=== PATIENT | female | born 1935 | race Caucasian/White ===

== ENCOUNTER 2016-04-22 10:58 | Emergency (ER) | payer MEDICARE, MEDICAID ==
[2016-04-22] MEDS ORDERED: Sodium Chloride 0.9% 2.5 ML Syringe FLUSH PRN (11:11)
[2016-04-22] MEDS ORDERED: Sodium Chloride 0.9% 10 ML Syringe FLUSH PRN (11:11)
[2016-04-22] MEDS ORDERED: Sodium Chloride 0.9% 1,000 ML IV SCH (11:15)
--- NOTE | 2016-04-22 12:07 | EDM.PDOC ---
ED HISTORY OF PRESENT ILLNESS - General Chief Complaint: Respiratory Problem Stated Complaint: UNK Time Seen by Provider: 04/22/16 11:03 Source of Information: Reports: Patient History Limitations: Reports: No limitations - History of Present Illness INITIAL COMMENTS - FREE TEXT/NARRATIVE: History of present illness: [] Patient is a very poor historian that arrives with abdominal pain but she also states that she's had the same sharp stabbing pain since she was 8 years old. Patient reported to the nurse that she has had shortness of breath or cough. Review of systems: As per history of present illness and below otherwise all systems reviewed and negative. Past medical history: As per history of present illness and as reviewed below otherwise noncontributory. Surgical history: As per history of present illness and as reviewed below otherwise noncontributory. Social history: No reported history of drug or alcohol abuse. Family history: As per history of present illness and as reviewed below otherwise noncontributory. Physical exam: General: Well developed, well nourished in NAD HEENT: Atraumatic, normocephalic, pupils reactive, negative for conjunctival pallor or scleral icterus, mucous membranes moist, throat clear, neck supple, nontender, trachea midline. Lungs: Clear to auscultation, breath sounds equal bilaterally, chest nontender. Heart: S1S2, regular, negative for clicks, rubs, or JVD. Abdomen: Soft, nondistended, nontender. Negative for masses or hepatosplenomegaly. Negative for costovertebral tenderness. Pelvis: Stable nontender. Genitourinary: Deferred. Rectal: Deferred. Extremities: Atraumatic, negative for cords or calf pain. Neurovascular unremarkable. Neuro: Awake, alert, oriented. Cranial nerves II through XII unremarkable. Cerebellum unremarkable. Motor and sensory unremarkable throughout. Exam nonfocal. Diagnostics: [] Labs x-ray UA showing a UTI Therapeutics: [] IV hydrated Impression: [] UTI Plan: [] Bactrim twice a day for 7 days followup PMD Definitive disposition and diagnosis as appropriate pending reevaluation and review of above. - Related Data Allergies/ADRs: Allergies Allergy/AdvReac Type Severity Reaction Status Date / Time No Known Allergies Allergy Verified 04/22/16 11:05 Home Meds: Home Meds Blood Pressure Medication 04/22/16 [History] Sulfamethoxazole/Trimethoprim [Bactrim Ds Tablet] 1 each PO BID #14 tablet 04/22 [Rx] Past Medical History Cardiovascular History: Reports: Hypertension Social & Family History - Family History Family Medical History: Noncontributory - Tobacco Use Smoking Status *Q: Current Every Day Smoker Years of Tobacco use: 50 Packs/Tins Daily: 0.5 - Recreational Drug Use Recreational Drug Use: No ED ROS GENERAL - Review of Systems Review Of Systems: See Below (History of present illness) ED EXAM, GENERAL - Physical Exam Exam: See Below (See history of present illness) Course - Vital Signs Last Recorded V/S: Last Vital Signs Temp 36.2 C 04/22/16 11:07 Pulse 75 04/22/16 11:07 Resp 18 04/22/16 11:07 BP 131/43 L 04/22/16 11:07 Pulse Ox 96 04/22/16 11:07 - Orders/Labs/Meds Orders: Active Orders 24 hr Category Date Time Status Chest 1V Frontal [CR] Stat Exams 04/22/16 11:16 Taken Sodium Chloride 0.9% [Normal Saline] 1,000 ml Med 04/22/16 11:15 Active IV .BOLUS Sodium Chloride 0.9% [Saline Flush] Med 04/22/16 11:11 Active 10 ml FLUSH ASDIRECTED PRN Sodium Chloride 0.9% [Saline Flush] Med 04/22/16 11:11 Active 2.5 ml FLUSH ASDIRECTED PRN Peripheral IV Insertion Adult [OM.PC] Stat Oth 04/22/16 11:10 Ordered Medication Orders Sodium Chloride (Normal Saline) 1,000 mls @ 999 mls/hr IV .BOLUS GOMEZ Last Admin: 04/22/16 11:28 Dose: 999 mls/hr Sodium Chloride (Saline Flush) 10 ml FLUSH ASDIRECTED PRN PRN Reason: Keep Vein Open Last Admin: 04/22/16 11:29 Dose: 10 ml Sodium Chloride (Saline Flush) 2.5 ml FLUSH ASDIRECTED PRN PRN Reason: Keep Vein Open Last Admin: 04/22/16 11:29 Dose: 2.5 ml Labs: Laboratory Tests 04/22/16 04/22/16 04/22/16 Range/Units 11:30 11:30 12:40 WBC 4.77 (4.0-11.0) K/uL RBC 4.98 (4.30-5.90) M/uL Hgb 14.0 (12.0-16.0) g/dL Hct 43.4 (36.0-46.0) % MCV 87.1 (80.0-98.0) fL MCH 28.1 (27.0-32.0) pg MCHC 32.3 (31.0-37.0) g/dL RDW Std Deviation 44.8 (28.0-62.0) fl RDW Coeff of Robel 14 (11.0-15.0) % Plt Count 126 L (150-400) K/uL MPV 10.90 (7.40-12.00) fL Neut % (Auto) 57.6 (48.0-80.0) % Lymph % (Auto) 30.0 (16.0-40.0) % [place] % (Auto) 12.2 (0.0-15.0) % Eos % (Auto) 0.0 (0.0-7.0) % Baso % (Auto) 0.2 (0.0-1.5) % Neut # 2.8 (1.4-5.7) K/uL Lymph # 1.4 (0.6-2.4) K/uL [place] # 0.6 (0.0-0.8) K/uL Eos # 0.0 (0.0-0.7) K/uL Baso # 0.0 (0.0-0.1) K/uL Nucleated RBC % 0.0 /100WBC Nucleated RBCs # 0 K/uL Sodium 140 (136-146) mmol/L Potassium 4.5 (3.5-5.1) mmol/L Chloride 101 (98-110) mmol/L Carbon Dioxide 21 (21-31) mmol/L BUN 73 H (6.0-23.0) mg/dL Creatinine 2.9 H (0.6-1.5) mg/dL Est Cr Clr Drug Dosing 11.40 mL/min Estimated GFR (MDRD) 15.7 ml/min Glucose 75 (60-110) mg/dL Calcium 9.2 (8.8-10.8) mg/dL Total Bilirubin 0.5 (0.1-1.5) mg/dL AST 76 H (5-40) IU/L ALT 13 (8-54) IU/L Alkaline Phosphatase 87 (40-150) Total Protein 7.4 (6.0-8.0) g/dL Albumin 3.7 (3.4-4.8) g/dL Globulin 3.7 H (2.0-3.5) g/dL Albumin/Globulin Ratio 1.0 L (1.3-2.8) Lipase 52 (7-80) U/L Urine Color YELLOW Urine Appearance HAZY Urine pH 5.5 (5.0-8.0) Ur Specific [place] 1.025 (1.001-1.035) Urine Protein 30 (NEGATIVE) mg/dL Urine Glucose (UA) NEGATIVE (NEGATIVE) mg/dL Urine Ketones TRACE H (NEGATIVE) mg/dL Urine Occult Blood SMALL H (NEGATIVE) Urine Nitrite NEGATIVE (NEGATIVE) Urine Bilirubin SMALL H (NEGATIVE) Urine Ictotest NEGATIVE Urine Urobilinogen 0.2 (<2.0) EU/dL Ur Leukocyte Esterase MODERATE (NEGATIVE) Urine RBC 0-2 (0-2/HPF) Urine WBC 13-15 (0-5/HPF) Ur Epithelial Cells FEW (NONE-FEW) Urine Bacteria FEW (NEGATIVE) Urinalysis Comment Meds: Medications Generic Name Dose Route Start Last Admin Trade Name Freq PRN Reason Stop Dose Admin Sodium Chloride 1,000 mls @ 999 mls/hr 04/22/16 11:15 04/22/16 11:28 Normal Saline IV 999 mls/hr .BOLUS GOMEZ Administration Sodium Chloride 10 ml 04/22/16 11:11 04/22/16 11:29 Saline Flush FLUSH 10 ml ASDIRECTED PRN Administration Keep Vein Open Sodium Chloride 2.5 ml 04/22/16 11:11 04/22/16 11:29 Saline Flush FLUSH 2.5 ml ASDIRECTED PRN Administration Keep Vein Open Departure - Departure Time of Disposition: 13:34 Disposition: Home, Self-Care 01 Condition: good Clinical Impression: UTI (urinary tract infection) Qualifiers: Urinary tract infection type: site unspecified Hematuria presence: without hematuria Qualified Code(s): N39.0 - Urinary tract infection, site not specified Forms: ED Department Discharge Additional Instructions: The following information is given to patients seen in the emergency department who are being discharged to home. This information is to outline your options for follow-up care. We provide all patients seen in our emergency department with a follow-up referral. The need for follow-up, as well as the timing and circumstances, are variable depending upon the specifics of your emergency department visit. If you don't have a primary care physician on staff, we will provide you with a referral. We always advise you to contact your personal physician following an emergency department visit to inform them of the circumstance of the visit and for follow-up with them and/or the need for any referrals to a consulting specialist. The emergency department will also refer you to a specialist when appropriate. This referral assures that you have the opportunity for follow-up care with a specialist. All of these measure are taken in an effort to provide you with optimal care, which includes your follow-up. Under all circumstances we always encourage you to contact your private physician who remains a resource for coordinating your care. When calling for follow-up care, please make the office aware that this follow-up is from your recent emergency room visit. If for any reason you are refused follow-up, please contact the [facility] Emergency Department at and asked to speak to the emergency department charge nurse. Bactrim twice a day for one week [facility] [address] [place] [phone] - My Orders Last 24 Hours: My Active Orders 04/22/16 11:10 Peripheral IV Insertion Adult [OM.PC] Stat 04/22/16 11:11 Sodium Chloride 0.9% [Saline Flush] 10 ml FLUSH ASDIRECTED PRN Sodium Chloride 0.9% [Saline Flush] 2.5 ml FLUSH ASDIRECTED PRN 04/22/16 11:15 Sodium Chloride 0.9% [Normal Saline] 1,000 ml IV .BOLUS 04/22/16 11:16 Chest 1V Frontal [CR] Stat - Assessment/Plan Last 24 Hours: My Active Orders 04/22/16 11:10 Peripheral IV Insertion Adult [OM.PC] Stat 04/22/16 11:11 Sodium Chloride 0.9% [Saline Flush] 10 ml FLUSH ASDIRECTED PRN Sodium Chloride 0.9% [Saline Flush] 2.5 ml FLUSH ASDIRECTED PRN 04/22/16 11:15 Sodium Chloride 0.9% [Normal Saline] 1,000 ml IV .BOLUS 04/22/16 11:16 Chest 1V Frontal [CR] Stat
[2016-04-22 13:52] VITALS: BP 140/52
--- NOTE | 2016-04-22 16:46 | CR ---
EXAM DATE: 04/22/16 PATIENT'S AGE: 80 Patient: MODESTO GREENWOOD Facility: [place], [place] Site . Site : [id number] Study: XRay Chest Portable [id number]/9/2017 11:43:30 AM Ordering Physician: Dirk Molina Final Report: HISTORY: Pain, shortness of breath. Technique: One view portable chest. Comparison: None. Findings: No airspace consolidation. 7 mm nodular opacity projecting over the posterior aspect of the right 5th rib. No pleural effusion or pneumothorax. Tortuous, atherosclerotic aorta. Cardiac silhouette is within normal limits for size. Impression: 1. 7 mm nodular opacity in the upper right lung. Recommend comparison with prior radiographs, if available, or further evaluation with chest CT. 2. No other acute pulmonary findings. Dictated by Jc Jameson MD @ Apr 22 2016 11:58AM (Electronic Signature) Report Signed by Proxy and Original Signed Document filed in the Medical Record. MTDD
== END 2016-04-22 13:49 | disposition home or self-care (01) ==
LOC: MW.ED 10:58
DX: N39.0 Urinary tract infection, site not specified (principal); I10 Essential (primary) hypertension; F17.210 Nicotine dependence, cigarettes, uncomplicated
CPT/HCPCS: 71010; 80053; 81001; 83690; 85025; 96360; 99285; J7040; 99283

== ENCOUNTER 2018-09-15 11:32 | Emergency (ER) | payer MEDICARE, MEDICAID ==
[2018-09-15] MEDS ORDERED: Sodium Chloride 0.9% 2.5 ML Syringe FLUSH PRN (11:46)
[2018-09-15] MEDS ORDERED: Sodium Chloride 0.9% 10 ML Syringe FLUSH PRN (11:46)
--- NOTE | 2018-09-15 12:10 | EDM.PDOC ---
ED HPI GENERAL MEDICAL PROBLEM - General Chief Complaint: Gastrointestinal Problem Stated Complaint: NO BM Time Seen by Provider: 09/15/18 11:45 Source of Information: Reports: Patient, Family History Limitations: Reports: No Limitations - History of Present Illness INITIAL COMMENTS - FREE TEXT/NARRATIVE: HISTORY AND PHYSICAL: History of present illness: Patient is an 83-year-old female who presents to the emergency room with her sister with complaints of constipation. She states she is unsure the last time she's had a bowel movement but does have generalized abdominal discomfort and bloating. The sister has given her [id number] Ex-Lax and prune juice this morning. Patient denies any fever, chills, headache, change in vision, syncope or near syncope. Denies any chest pain, back pain, shortness of breath or cough. Denies any nausea, vomiting or dysuria. Has not noted any blood in urine or stool. Patient has been eating and drinking appropriately. Review of systems: As per history of present illness and below otherwise all systems reviewed and negative. Past medical history: As per history of present illness and as reviewed below otherwise noncontributory. Surgical history: As per history of present illness and as reviewed below otherwise noncontributory. Social history: See social history for further information Family history: As per history of present illness and as reviewed below otherwise noncontributory. Physical exam: General: Well-developed and well-nourished 83-year-old female. Alert and oriented. Nontoxic appearing and in no acute distress. HEENT: Atraumatic, normocephalic, pupils equal and reactive bilaterally, negative for conjunctival pallor or scleral icterus, mucous membranes moist, TMs normal bilaterally, throat clear, neck supple, nontender, trachea midline. No drooling or trismus noted. No meningeal signs. No hot potato voice noted. Lungs: Clear to auscultation, breath sounds equal bilaterally, chest nontender. Heart: S1S2, regular rate and rhythm without overt murmur Abdomen: Soft, nondistended, nontender. Negative for masses. Negative for costovertebral tenderness. Pelvis: Stable nontender. Skin: Intact, warm, dry. No lesions or rashes noted. Extremities: Atraumatic, moves all extremities per self without difficulty or deficits, negative for cords or calf pain. Neurovascular unremarkable. Neuro: Awake, alert, oriented. Cranial nerves II through XII unremarkable. Cerebellum unremarkable. Motor and sensory unremarkable throughout. Exam nonfocal. Notes: After patient was assessed she has the sensation of needing to have a bowel movement. She did have a large amount of stool. She would like to continue with the lab work and x-ray is fine but does feel much improved. X-ray shows a few prominent small bowel loops with air-fluid levels in the right abdomen. Moderate to large amount of stool in the descending and sigmoid colon and rectum. No evidence of free air. Labs are unremarkable. Vital signs remain stable. Patient states that she feels improved and would like to be discharged to home. Supportive care measures were reviewed and discussed. Voices understanding and is agreeable to plan of care. Denies any further questions or concerns at this time. Diagnostics: CBC, CMP, UA, Acute Abdominal Series Therapeutics: None Prescription: None Impression: Constipation Plan: 1. Start an over the counter Colace and/or Miralax daily. 2. Increase your oral fluids 3. Follow up with your primary care provider. Return to the ED as needed as discussed. Definitive disposition and diagnosis as appropriate pending reevaluation and review of above. - Related Data Allergies Allergy/AdvReac Type Severity Reaction Status Date / Time No Known Allergies Allergy Verified 09/15/18 11:50 Home Meds: Home Meds Furosemide 20 mg PO ASDIRECTED PRN 09/15/18 [History] Losartan Potassium 100 mg PO ASDIRECTED 09/15/18 [History] Rosuvastatin [Crestor] 10 mg ASDIRECTED 09/15/18 [History] amLODIPine Besylate [Amlodipine Besylate] 10 mg PO ASDIRECTED 09/15/18 [History] hydroCHLOROthiazide [Hydrochlorothiazide] 25 mg PO ASDIRECTED 09/15/18 [History] Past Medical History - Past Health History Medical/Surgical History: Denies Medical/Surgical History Cardiovascular History: Reports: Hypertension Social & Family History - Family History Family Medical History: Noncontributory - Tobacco Use Smoking Status *Q: Current Every Day Smoker Years of Tobacco use: 60 Packs/Tins Daily: 0.5 - Recreational Drug Use Recreational Drug Use: No ED ROS GENERAL - Review of Systems Review Of Systems: ROS reveals no pertinent complaints other than HPI. ED EXAM, GI/ABD - Physical Exam Exam: See Below (See dictation) Course - Vital Signs Last Recorded V/S: Last Vital Signs Temp 96.4 F 09/15/18 11:55 Pulse 76 09/15/18 12:57 Resp 13 09/15/18 12:57 BP 110/70 09/15/18 12:57 Pulse Ox 96 09/15/18 12:57 - Orders/Labs/Meds Labs: Laboratory Tests 09/15/18 09/15/18 Range/Units 12:03 12:03 WBC 9.55 (4.0-11.0) K/uL RBC 4.44 (4.30-5.90) M/uL Hgb 12.8 (12.0-16.0) g/dL Hct 40.0 (36.0-46.0) % MCV 90.1 (80.0-98.0) fL MCH 28.8 (27.0-32.0) pg MCHC 32.0 (31.0-37.0) g/dL RDW Std Deviation 46.1 (28.0-62.0) fl RDW Coeff of Robel 14 (11.0-15.0) % Plt Count 319 (150-400) K/uL MPV 9.50 (7.40-12.00) fL Neut % (Auto) 81.8 H (48.0-80.0) % Lymph % (Auto) 13.6 L (16.0-40.0) % [place] % (Auto) 4.3 (0.0-15.0) % Eos % (Auto) 0.1 (0.0-7.0) % Baso % (Auto) 0.2 (0.0-1.5) % Neut # (Auto) 7.8 H (1.4-5.7) K/uL Lymph # (Auto) 1.3 (0.6-2.4) K/uL [place] # (Auto) 0.4 (0.0-0.8) K/uL Eos # (Auto) 0.0 (0.0-0.7) K/uL Baso # (Auto) 0.0 (0.0-0.1) K/uL Nucleated RBC % 0.0 /100WBC Nucleated RBCs # 0 K/uL Sodium 141 (136-145) mmol/L Potassium 4.3 (3.5-5.1) mmol/L Chloride 107 (98-107) mmol/L Carbon Dioxide 22.5 (21.0-32.0) mmol/L BUN 20 H (7.0-18.0) mg/dL Creatinine 1.0 (0.6-1.0) mg/dL Est Cr Clr Drug Dosing 30.13 mL/min Estimated GFR (MDRD) 53.1 ml/min Glucose 117 H (74-106) mg/dL Calcium 10.2 H (8.5-10.1) mg/dL Total Bilirubin 0.4 (0.2-1.0) mg/dL AST 35 (15-37) IU/L ALT 10 L (14-63) IU/L Alkaline Phosphatase 106 (46-116) U/L Total Protein 7.4 (6.4-8.2) g/dL Albumin 3.6 (3.4-5.0) g/dL Globulin 3.8 (2.6-4.0) g/dL Albumin/Globulin Ratio 0.9 (0.9-1.6) Meds: Medications Discontinued Medications Generic Name Dose Route Start Last Admin Trade Name Freq PRN Reason Stop Dose Admin Sodium Chloride 10 ml 09/15/18 11:46 09/15/18 12:05 Saline Flush FLUSH 10 ml ASDIRECTED PRN Administration Keep Vein Open Sodium Chloride 2.5 ml 09/15/18 11:46 09/15/18 12:05 Saline Flush FLUSH 2.5 ml ASDIRECTED PRN Administration Keep Vein Open Departure - Departure Time of Disposition: 12:13 Disposition: Home, Self-Care 01 Clinical Impression: Constipation Qualifiers: Constipation type: unspecified constipation type Qualified Code(s): K59.00 - Constipation, unspecified - Discharge Information Instructions: Constipation, Adult, [id number] Referrals: PCP,Unknown [Primary Care Provider] - Forms: ED Department Discharge Additional Instructions: The following information is given to patients seen in the emergency department who are being discharged to home. This information is to outline your options for follow-up care. We provide all patients seen in our emergency department with a follow-up referral. The need for follow-up, as well as the timing and circumstances, are variable depending upon the specifics of your emergency department visit. If you don't have a primary care physician on staff, we will provide you with a referral. We always advise you to contact your personal physician following an emergency department visit to inform them of the circumstance of the visit and for follow-up with them and/or the need for any referrals to a consulting specialist. The emergency department will also refer you to a specialist when appropriate. This referral assures that you have the opportunity for follow-up care with a specialist. All of these measure are taken in an effort to provide you with optimal care, which includes your follow-up. Under all circumstances we always encourage you to contact your private physician who remains a resource for coordinating your care. When calling for follow-up care, please make the office aware that this follow-up is from your recent emergency room visit. If for any reason you are refused follow-up, please contact the [facility] Emergency Department at and asked to speak to the emergency department charge nurse. [facility] [address] [place] [phone] [facility] [address] [place] [phone] 1. Start an over the counter Colace and/or Miralax daily 2. Increase your oral fluids 3. Follow up with your primary care provider. Return to the ED as needed as discussed.
[2018-09-15 12:39] LABS: CARBON DIOXIDE,CO2 22.5 mmol/L (21.0-32.0); POTASSIUM,K 4.3 mmol/L (3.5-5.1)
[2018-09-15 12:58] VITALS: BP 110/70; PULSE 76
--- NOTE | 2018-09-15 13:18 | CR ---
Indication: Constipation. Technique: Abdomen 1 view. Comparison: None. Findings: Few prominent small bowel loops with air-fluid levels in the right abdomen. Moderate to large amount of stool throughout the descending and sigmoid colon and rectum. No evidence of free air. The lung bases are clear. Thoracolumbar curve. Degenerative changes of the spine. Impression: 1. Few prominent small bowel loops with air-fluid levels in the right abdomen. This could be seen in the setting of obstruction. 2. Moderate to large amount of stool throughout the descending and sigmoid colon and rectum. Dictated by Gloria Bañuelos MD @ Sep 15 2018 1:12PM Signed by Dr. Gloria Bañuelos @ Sep 15 2018 1:16PM
== END 2018-09-15 12:58 | disposition home or self-care (01) ==
LOC: MW.ED 11:32
DX: K59.00 Constipation, unspecified (principal); I10 Essential (primary) hypertension; F17.210 Nicotine dependence, cigarettes, uncomplicated; Z79.899 Other long term (current) drug therapy; Z79.84 Long term (current) use of oral hypoglycemic drugs
CPT/HCPCS: 36415; 74018; 74018-26; 80053; 85025; 99283; 99283-25

== ENCOUNTER 2019-06-16 10:07 | Emergency (ER) | payer MEDICARE, MEDICAID ==
--- NOTE | 2019-06-16 10:22 | EDM.PDOC ---
ED HPI GENERAL MEDICAL PROBLEM - General Chief Complaint: Abdominal Pain Stated Complaint: STOMACH PAIN Time Seen by Provider: 06/16/19 10:18 Source of Information: Reports: Patient History Limitations: Reports: No Limitations - History of Present Illness INITIAL COMMENTS - FREE TEXT/NARRATIVE: HISTORY AND PHYSICAL: History of present illness: Patient is an 84-year-old female who presents to the emergency room with complaints of right lower quadrant pain. Patient is unreliable for health history, she did give me permission to talk to her sister who brought her into the emergency room. The sister states that the patient has been complaining of generalized abdominal pain and cramping for approximately 1 week. She was brought to her primary care provider, Dr. Lu, who recommended she take MiraLAX and Ex-Lax for her constipation type symptoms. The sister states she really lives on her own and she is unsure if she is actually had a bowel movement. She does note that she was complaining of some nausea and did have few episodes of vomiting. The patient herself states that "nothing is wrong with my bowels" and does believe she had a bowel movement yesterday. Patient denies any fever, chills, headache, change in vision, syncope or near syncope. Denies any chest pain, back pain, shortness of breath or cough. Denies any diarrhea, constipation or dysuria - states "I've been going normal now". Has not noted any blood in urine or stool. Patient has been eating and drinking appropriately. PMH of hypertension and constipation. Review of systems: As per history of present illness and below otherwise all systems reviewed and negative. Past medical history: As per history of present illness and as reviewed below otherwise noncontributory. Surgical history: As per history of present illness and as reviewed below otherwise noncontributory. Social history: See social history for further information Family history: As per history of present illness and as reviewed below otherwise noncontributory. Physical exam: General: Very thin appearing 84 year old female. Alert but pleasantly confused. Nontoxic in appearance and in no acute distress. HEENT: Atraumatic, normocephalic, pupils equal and reactive bilaterally, negative for conjunctival pallor or scleral icterus, mucous membranes dry, trachea midline. No drooling or trismus noted. No meningeal signs. No hot potato voice noted. Lungs: Clear to auscultation, breath sounds equal bilaterally, chest nontender. Heart: S1S2, regular rate and rhythm without overt murmur Abdomen: Soft, nondistended, RLQ tenderness without rebound tenderness. Negative for masses or hepatosplenomegaly. Negative for costovertebral tenderness. Pelvis: Stable nontender. Skin: Intact, warm, dry. No lesions or rashes noted. Extremities: Atraumatic, moves all extremities per self without difficulty or deficits, negative for cords or calf pain. Neurovascular unremarkable. Neuro: Awake, alert, oriented. Cranial nerves II through XII unremarkable. Cerebellum unremarkable. Motor and sensory unremarkable throughout. Exam nonfocal. Notes: Dr Hewitt was directly involved in patient care. Patient's sister: Dahiana . Patient requests that I talk with her sister about medical exam/findings and discharge. Lab work is unremarkable. While here the patient's pain has resolved. CT scan shows cholelithiasis within a distended/patulous and thick walled gallbladder. Cholecystitis is not excluded. No other acute findings in the abdomen or pelvis. Large unilocular cystic lesion in the right posterior pelvis likely arising from the right ovary. This may represent a cystic ovarian neoplasm. 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 These findings were shared with the patient and her sister. We discussed the need for follow-up with Dr Lu for ultrasound of the gallbladder and ovary. Patient and sister are comfortable and requesting discharge with close follow up. While here the patient has been making comments about taking care of a infant at home, she is alert and oriented - but somewhat confused. There was some concern that she may not be able to take care of herself at home, as she does live alone. Social service consult was placed. The sister states this is a normal variance and this is her baseline. Donna will be going to stay with her sister in [place], for the next few weeks. Supportive care measures were reviewed and discussed. Voices understanding and is agreeable to plan of care. Denies any further questions or concerns at this time. Diagnostics: CBC, CMP, UA, Lipase, CT abdomen/pelvis Therapeutics: IV fluids, Zofran Prescription: None Impression: Abdominal Pain Cholelithiasis (incidental finding) Ovarian cystic lesion (incidental finding) Plan: 1. Mcduffie diet, advance diet as tolerated. Increase your oral fluids. 2. The CT scan showed that you need reevaluation of the gallbladder and right ovary. Please take your discharge packet with you to your next primary care appointment. 3. Follow up with Dr Lu as we discussed. Return to the ED as needed and as discussed. Definitive disposition and diagnosis as appropriate pending reevaluation and review of above. right lower abd Pain Score (Numeric/FACES): 9 - Related Data Allergies Allergy/AdvReac Type Severity Reaction Status Date / Time No Known Allergies Allergy Verified 06/16/19 10:31 Home Meds: Home Meds Furosemide 20 mg PO ASDIRECTED PRN 09/15/18 [History] Losartan Potassium 100 mg PO ASDIRECTED 09/15/18 [History] Rosuvastatin [Crestor] 10 mg ASDIRECTED 09/15/18 [History] amLODIPine Besylate [Amlodipine Besylate] 10 mg PO ASDIRECTED 09/15/18 [History] hydroCHLOROthiazide [Hydrochlorothiazide] 25 mg PO ASDIRECTED 09/15/18 [History] Past Medical History - Past Health History Medical/Surgical History: Denies Medical/Surgical History Cardiovascular History: Reports: Hypertension Social & Family History - Family History Family Medical History: Noncontributory ED ROS GENERAL - Review of Systems Review Of Systems: Comprehensive ROS is negative, except as noted in HPI. ED EXAM, GI/ABD - Physical Exam Exam: See Below (See dictation) Course - Vital Signs Last Recorded V/S: Last Vital Signs Temp 98.3 F 06/16/19 10:31 Pulse 102 H 06/16/19 10:31 Resp 18 06/16/19 10:31 BP 143/40 H 06/16/19 10:31 Pulse Ox 95 06/16/19 10:31 - Orders/Labs/Meds Orders: Active Orders 24 hr Category Date Time Status Sodium Chloride 0.9% [Normal Saline] 1,000 ml Med 06/16/19 10:33 Active IV STAT Medication Orders Sodium Chloride (Normal Saline) 1,000 mls @ 125 mls/hr IV STAT ONE Stop: 06/16/19 18:32 Last Infusion: 06/16/19 11:39 Dose: 500 mls/hr Admin: 06/16/19 10:44 Dose: 125 mls/hr Labs: Laboratory Tests 05/02/20 05/02/20 05/02/20 Range/Units 10:35 10:35 11:50 WBC 7.58 (4.0-11.0) K/uL RBC 5.02 (4.30-5.90) M/uL Hgb 14.6 (12.0-16.0) g/dL Hct 46.0 (36.0-46.0) % MCV 91.6 (80.0-98.0) fL MCH 29.1 (27.0-32.0) pg MCHC 31.7 (31.0-37.0) g/dL RDW Std Deviation 45.2 (28.0-62.0) fl RDW Coeff of Robel 14 (11.0-15.0) % Plt Count 335 (150-400) K/uL MPV 9.80 (7.40-12.00) fL Neut % (Auto) 70.8 (48.0-80.0) % Lymph % (Auto) 21.9 (16.0-40.0) % [place] % (Auto) 6.3 (0.0-15.0) % Eos % (Auto) 0.7 (0.0-7.0) % Baso % (Auto) 0.3 (0.0-1.5) % Neut # (Auto) 5.4 (1.4-5.7) K/uL Lymph # (Auto) 1.7 (0.6-2.4) K/uL [place] # (Auto) 0.5 (0.0-0.8) K/uL Eos # (Auto) 0.1 (0.0-0.7) K/uL Baso # (Auto) 0.0 (0.0-0.1) K/uL Nucleated RBC % 0.0 /100WBC Nucleated RBCs # 0 K/uL Sodium 141 (136-145) mmol/L Potassium 3.7 (3.5-5.1) mmol/L Chloride 103 (98-107) mmol/L Carbon Dioxide 28.0 (21.0-32.0) mmol/L BUN 28 H (7.0-18.0) mg/dL Creatinine 1.1 H (0.6-1.0) mg/dL Est Cr Clr Drug Dosing 27.83 mL/min Estimated GFR (MDRD) 47.4 ml/min Glucose 149 H (74-106) mg/dL Calcium 9.9 (8.5-10.1) mg/dL Total Bilirubin 0.4 (0.2-1.0) mg/dL AST 32 (15-37) IU/L ALT 11 L (14-63) IU/L Alkaline Phosphatase 109 (46-116) U/L Total Protein 7.4 (6.4-8.2) g/dL Albumin 3.8 (3.4-5.0) g/dL Globulin 3.6 (2.6-4.0) g/dL Albumin/Globulin Ratio 1.1 (0.9-1.6) Lipase 127 (73-393) U/L Urine Color YELLOW Urine Appearance CLEAR Urine pH 7.0 (5.0-8.0) Ur Specific [place] 1.010 (1.001-1.035) Urine Protein NEGATIVE (NEGATIVE) mg/dL Urine Glucose (UA) NEGATIVE (NEGATIVE) mg/dL Urine Ketones TRACE H (NEGATIVE) mg/dL Urine Occult Blood TRACE-INTACT H (NEGATIVE) Urine Nitrite NEGATIVE (NEGATIVE) Urine Bilirubin NEGATIVE (NEGATIVE) Urine Urobilinogen 0.2 (<2.0) EU/dL Ur Leukocyte Esterase NEGATIVE (NEGATIVE) Urine RBC 0-3 (0-2/HPF) Urine WBC 0-1 (0-5/HPF) Ur Epithelial Cells OCCASIONAL (NONE-FEW) Urine Bacteria RARE (NEGATIVE) Meds: Medications Generic Name Dose Route Start Last Admin Trade Name Freq PRN Reason Stop Dose Admin Sodium Chloride 1,000 mls @ 125 mls/hr 06/16/19 10:33 06/16/19 11:39 Normal Saline IV 06/16/19 18:32 500 mls/hr STAT ONE Infusion Discontinued Medications Generic Name Dose Route Start Last Admin Trade Name Freq PRN Reason Stop Dose Admin Dicyclomine HCl 10 mg 06/16/19 11:06 06/16/19 12:25 Bentyl PO 06/16/19 11:07 Not Given ONETIME ONE Iopamidol 66 ml 06/16/19 11:28 06/16/19 11:29 Isovue-370 (76%) IVPUSH 06/16/19 11:29 66 ml ONETIME STA Administration Ondansetron HCl 4 mg 06/16/19 10:45 06/16/19 10:50 Zofran IVPUSH 06/16/19 10:46 4 mg ONETIME ONE Administration Departure - Departure Time of Disposition: 12:58 Disposition: Home, Self-Care 01 Clinical Impression: Lesion of right ovary Abdominal pain Qualifiers: Abdominal location: generalized Qualified Code(s): R10.84 - Generalized abdominal pain Cholelithiasis Qualifiers: Cholelithiasis location: gallbladder Cholecystitis presence: without cholecystitis Biliary obstruction: without biliary obstruction Qualified Code(s) : K80.20 - Calculus of gallbladder without cholecystitis without obstruction - Discharge Information Instructions: Abdominal Pain, Adult, [id number] Referrals: Brody Lu MD [Primary Care Provider] - Forms: ED Department Discharge Additional Instructions: The following information is given to patients seen in the emergency department who are being discharged to home. This information is to outline your options for follow-up care. We provide all patients seen in our emergency department with a follow-up referral. The need for follow-up, as well as the timing and circumstances, are variable depending upon the specifics of your emergency department visit. If you don't have a primary care physician on staff, we will provide you with a referral. We always advise you to contact your personal physician following an emergency department visit to inform them of the circumstance of the visit and for follow-up with them and/or the need for any referrals to a consulting specialist. The emergency department will also refer you to a specialist when appropriate. This referral assures that you have the opportunity for follow-up care with a specialist. All of these measure are taken in an effort to provide you with optimal care, which includes your follow-up. Under all circumstances we always encourage you to contact your private physician who remains a resource for coordinating your care. When calling for follow-up care, please make the office aware that this follow-up is from your recent emergency room visit. If for any reason you are refused follow-up, please contact the [facility] Emergency Department at and asked to speak to the emergency department charge nurse. [facility] [address] [place] [address] [id number] [address] [address] [place] [address] 1. Mcduffie diet, advance diet as tolerated. Increase your oral fluids. 2. The CT scan showed that you need reevaluation of the gallbladder ( gallbladder thickening) and right ovary (ovarian cystic lesion). Please take your discharge packet with you to your next primary care appointment. 3. Follow up with Dr Lu as we discussed. Return to the ED as needed and as discussed. Sepsis Event Note - Focused Exam Vital Signs: Vital Signs Temp Pulse Resp BP Pulse Ox 06/16/19 10:31 98.3 F 102 H 18 143/40 H 95 Date Exam was Performed: 06/16/19 Time Exam was Performed: 13:02 - My Orders Last 24 Hours: My Active Orders 06/16/19 10:33 Sodium Chloride 0.9% [Normal Saline] 1,000 ml IV STAT - Assessment/Plan Last 24 Hours: My Active Orders 06/16/19 10:33 Sodium Chloride 0.9% [Normal Saline] 1,000 ml IV STAT
[2019-06-16] MEDS ORDERED: Sodium Chloride 0.9% 1,000 ML IV ONE (10:33)
[2019-06-16] MEDS ORDERED: Ondansetron 4 MG/2 ML SDV IVPUSH ONE (10:45)
[2019-06-16 11:06] LABS: POTASSIUM,K 3.7 mmol/L (3.5-5.1)
[2019-06-16] MEDS ORDERED: Dicyclomine 10 MG Cap PO ONE (11:06)
[2019-06-16] MEDS ORDERED: Iopamidol 755 Mg/ML 100 ML Bottle IVPUSH STA (11:28)
--- NOTE | 2019-06-16 12:50 | CT ---
INDICATION: Right lower quadrant pain for 1 week[address] TECHNIQUE: CT abdomen and pelvis acquired with 66 cc Isovue 370 IV contrast. Coronal and sagittal reconstructions. COMPARISON: None. FINDINGS: There is a 1.5 cm low-attenuation subcapsular lesion in the anterior left hepatic lobe (series 201, image 30) which is not well characterized on this exam but likely represents a benign cyst or hemangioma. Hepatic and portal veins are patent. The gallbladder is distended/patulous with thickened wall and multiple stones layering inferiorly. No definite pericholecystic inflammatory changes. No biliary dilation. Small splenic cysts or hemangiomas. The spleen and adrenal glands are negative. Symmetric enhancement of the kidneys. No hydronephrosis. The bladder is unremarkable. Calcified uterine fibroid. There is a 8.6 x 7.7 cm unilocular cystic lesion in the right posterior pelvis (series 201, image 28) which is likely arising from the right ovary. No bowel dilation. The appendix is not definitely identified. No intraperitoneal free air or fluid. Aortoiliac vascular calcifications. 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 No lymphadenopathy. Degenerative changes of spine. Mild retrolisthesis of L2 on L3. Thoracolumbar curve. Bibasilar atelectasis or scarring. Emphysema in the lung bases. Coronary artery calcifications. IMPRESSION: 1. Cholelithiasis within a distended/patulous and thick walled gallbladder. Cholecystitis is not excluded. Recommend ultrasound for further evaluation. 2. No other acute findings in the abdomen or pelvis. 3. Large unilocular cystic lesion in the right posterior pelvis likely arising from the right ovary. This may represent a cystic ovarian neoplasm. Recommend further evaluation with pelvic ultrasound. 4. 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 Please note that all CT scans at this facility use dose modulation, iterative reconstruction, and/or weight-based dosing when appropriate to reduce radiation dose to as low as reasonably achievable. Dictated by Gloria Bañuelos MD @ Jun 16 2019 12:32PM Signed by Dr. Gloria Bañuelos @ Jun 16 2019 12:47PM
[2019-06-16 13:22] VITALS: BP 136/52; PULSE 60
== END 2019-06-16 13:16 | disposition home or self-care (01) ==
LOC: MW.ED 10:07
DX: K80.20 Calculus of gallbladder without cholecystitis without obstruction (principal); I10 Essential (primary) hypertension; N83.8 Other noninflammatory disorders of ovary, fallopian tube and broad ligament; Z79.899 Other long term (current) drug therapy
CPT/HCPCS: 74177; 80053; 81001; 83690; 85025; 96361; 96374; 99284; J2405; J7030; Q9967

== ENCOUNTER 2019-06-24 11:35 | Emergency (ER) | payer MEDICARE, MEDICAID ==
[2019-06-24 11:45] VITALS: BP 150/53; PULSE 79
[2019-06-24] MEDS ORDERED: Sodium Chloride 0.9% 2.5 ML Syringe FLUSH PRN (11:59)
[2019-06-24] MEDS ORDERED: Sodium Chloride 0.9% 10 ML Syringe FLUSH PRN (11:59)
--- NOTE | 2019-06-24 12:08 | EDM.PDOC ---
ED HPI GENERAL MEDICAL PROBLEM - General Chief Complaint: Abdominal Pain Stated Complaint: STOMACH PAIN Time Seen by Provider: 06/24/19 12:08 Source of Information: Reports: Patient, Family History Limitations: Reports: No Limitations - History of Present Illness INITIAL COMMENTS - FREE TEXT/NARRATIVE: HISTORY AND PHYSICAL: History of present illness: Patient is an 84-year-old female presents to the ED with her sister for abdominal pain. Patient has history of dementia and unreliable historian. Patient was in ED 1 week ago for similar symptoms. She does report having pain all day today in her lower abdomen. She denies fevers, chills, nausea, vomiting , or diarrhea. She is uncertain of when her last bowel movement was. Her sister states she did have one last tuesday (5 days ago). She has a history of constipation. She had been taking ex-lax but sister states they were told to stop this the last time she was in the ED 1 week ago. Patient has a follow up with primary care provider tomorrow. Denies surgical history. CT scan from 06/16/19 showed cholelithiasis within a distended/patulous and thick walled gallbladder. 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 Ultrasounds were recommended for further evaluation. 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 Review of systems: As per history of present illness and below otherwise all systems reviewed and negative. Past medical history: As per history of present illness and as reviewed below otherwise noncontributory. Surgical history: As per history of present illness and as reviewed below otherwise noncontributory. Social history: No reported history of drug or alcohol abuse. Family history: As per history of present illness and as reviewed below otherwise noncontributory. Physical exam: General: Patient sitting comfortably in no acute distress and nontoxic appearing HEENT: Atraumatic, normocephalic, pupils reactive, negative for conjunctival pallor or scleral icterus, mucous membranes moist, throat clear, neck supple, nontender, trachea midline. No meningeal signs. Lungs: Clear to auscultation, breath sounds equal bilaterally, chest nontender. Heart: S1S2, regular, negative for clicks, rubs, or overt murmur. Abdomen: Mild diffuse abdominal tenderness. Soft, nondistended. Negative for masses or hepatosplenomegaly. Negative for costovertebral tenderness. No rigidity, rebound, guarding. Pelvis: Stable nontender. Genitourinary: Deferred. Rectal: Deferred. Extremities: Atraumatic, negative for cords or calf pain. Neurovascular unremarkable. Neuro: Awake, alert, oriented. Cranial nerves II through XII unremarkable. Cerebellum unremarkable. Motor and sensory unremarkable throughout. Exam nonfocal. Notes: labs are unremarkable today. Patient's abdominal exam is benign. x-ray shows a large amount of stool in colon, constipation likely the cause of her pain especially with recently stopped her regular use of ex-lax. She has follow up with her primary care provider tomorrow and understands to return to the ED if any new or worsening symptoms. Diagnostics: CBC, CMP, lipase, [employer]: none Prescriptions: none Impression: abdominal pain, constipation Plan: Take 1/2 bottle of magnesium citrate when you get home You may take second half of bottle tomorrow morning if you do not have a bowel movement by then Follow up with primary care provider Return to ED as needed as discussed Definitive disposition and diagnosis as appropriate pending reevaluation and review of above. - Related Data Allergies Allergy/AdvReac Type Severity Reaction Status Date / Time No Known Allergies Allergy Verified 06/24/19 11:45 Home Meds: Home Meds Furosemide 20 mg PO ASDIRECTED PRN 09/15/18 [History] Losartan Potassium 100 mg PO ASDIRECTED 09/15/18 [History] Rosuvastatin [Crestor] 10 mg ASDIRECTED 09/15/18 [History] amLODIPine Besylate [Amlodipine Besylate] 10 mg PO ASDIRECTED 09/15/18 [History] hydroCHLOROthiazide [Hydrochlorothiazide] 25 mg PO ASDIRECTED 09/15/18 [History] Past Medical History - Past Health History Medical/Surgical History: Denies Medical/Surgical History HEENT History: Reports: None Cardiovascular History: Reports: Hypertension Respiratory History: Reports: None Gastrointestinal History: Reports: None Genitourinary History: Reports: None [employer] History: Reports: None Musculoskeletal History: Reports: None Neurological History: Reports: None Psychiatric History: Reports: None Endocrine/Metabolic History: Reports: None Hematologic History: Reports: None Immunologic History: Reports: None Oncologic (Cancer) History: Reports: None Dermatologic History: Reports: None - Infectious Disease History Infectious Disease History: Reports: None - Past Surgical History Head Surgeries/Procedures: Reports: None HEENT Surgical History: Reports: None Cardiovascular Surgical History: Reports: None Respiratory Surgical History: Reports: None GI Surgical History: Reports: None Female Surgical History: Reports: None Endocrine Surgical History: Reports: None Neurological Surgical History: Reports: None Musculoskeletal Surgical History: Reports: None Oncologic Surgical History: Reports: None Dermatological Surgical History: Reports: None Social & Family History - Family History Family Medical History: Noncontributory - Tobacco Use Smoking Status *Q: Current Every Day Smoker Years of Tobacco use: 60 Packs/Tins Daily: 1 - Caffeine Use Caffeine Use: Reports: None - Recreational Drug Use Recreational Drug Use: No ED ROS GENERAL - Review of Systems Review Of Systems: Comprehensive ROS is negative, except as noted in HPI. ED EXAM, GI/ABD - Physical Exam Exam: See Below (see dictation) Course - Vital Signs Last Recorded V/S: Last Vital Signs Temp 97.1 F 06/24/19 11:44 Pulse 79 06/24/19 11:44 Resp 18 06/24/19 11:44 BP 150/53 H 06/24/19 11:44 Pulse Ox 97 06/24/19 11:44 - Orders/Labs/Meds Orders: Active Orders 24 hr Category Date Time Status Saline Lock Insert [OM.PC] Stat Oth 06/24/19 11:59 Ordered Labs: Laboratory Tests 06/24/19 06/24/19 06/24/19 Range/Units 12:22 12:22 12:25 WBC 8.41 (4.0-11.0) K/uL RBC 4.81 (4.30-5.90) M/uL Hgb 14.0 (12.0-16.0) g/dL Hct 44.8 (36.0-46.0) % MCV 93.1 (80.0-98.0) fL MCH 29.1 (27.0-32.0) pg MCHC 31.3 (31.0-37.0) g/dL RDW Std Deviation 46.4 (28.0-62.0) fl RDW Coeff of Robel 14 (11.0-15.0) % Plt Count 330 (150-400) K/uL MPV 9.90 (7.40-12.00) fL Neut % (Auto) 72.9 (48.0-80.0) % Lymph % (Auto) 21.2 (16.0-40.0) % [place] % (Auto) 5.1 (0.0-15.0) % Eos % (Auto) 0.6 (0.0-7.0) % Baso % (Auto) 0.2 (0.0-1.5) % Neut # (Auto) 6.1 H (1.4-5.7) K/uL Lymph # (Auto) 1.8 (0.6-2.4) K/uL [place] # (Auto) 0.4 (0.0-0.8) K/uL Eos # (Auto) 0.1 (0.0-0.7) K/uL Baso # (Auto) 0.0 (0.0-0.1) K/uL Nucleated RBC % 0.0 /100WBC Nucleated RBCs # 0 K/uL Sodium 141 (136-145) mmol/L Potassium 4.0 (3.5-5.1) mmol/L Chloride 104 (98-107) mmol/L Carbon Dioxide 25.6 (21.0-32.0) mmol/L BUN 19 H (7.0-18.0) mg/dL Creatinine 0.9 (0.6-1.0) mg/dL Est Cr Clr Drug Dosing 29.16 mL/min Estimated GFR (MDRD) 59.8 ml/min Glucose 107 H (74-106) mg/dL Calcium 10.3 H (8.5-10.1) mg/dL Total Bilirubin 0.4 (0.2-1.0) mg/dL AST 35 (15-37) IU/L ALT 14 (14-63) IU/L Alkaline Phosphatase 110 (46-116) U/L Total Protein 7.5 (6.4-8.2) g/dL Albumin 3.8 (3.4-5.0) g/dL Globulin 3.7 (2.6-4.0) g/dL Albumin/Globulin Ratio 1.0 (0.9-1.6) Lipase 192 (73-393) U/L Urine Color YELLOW Urine Appearance HAZY Urine pH 8.0 (5.0-8.0) Ur Specific [place] 1.020 (1.001-1.035) Urine Protein NEGATIVE (NEGATIVE) mg/dL Urine Glucose (UA) NEGATIVE (NEGATIVE) mg/dL Urine Ketones NEGATIVE (NEGATIVE) mg/dL Urine Occult Blood NEGATIVE (NEGATIVE) Urine Nitrite NEGATIVE (NEGATIVE) Urine Bilirubin NEGATIVE (NEGATIVE) Urine Urobilinogen 0.2 (<2.0) EU/dL Ur Leukocyte Esterase NEGATIVE (NEGATIVE) Meds: Medications Discontinued Medications Generic Name Dose Route Start Last Admin Trade Name Freq PRN Reason Stop Dose Admin Sodium Chloride 10 ml 06/24/19 11:59 Saline Flush FLUSH ASDIRECTED PRN Keep Vein Open Sodium Chloride 2.5 ml 06/24/19 11:59 Saline Flush FLUSH ASDIRECTED PRN Keep Vein Open Departure - Departure Time of Disposition: 13:05 Disposition: Home, Self-Care 01 Condition: Good Clinical Impression: Constipation Qualifiers: Constipation type: unspecified constipation type Qualified Code(s): K59.00 - Constipation, unspecified Abdominal pain Qualifiers: Abdominal location: generalized Qualified Code(s): R10.84 - Generalized abdominal pain - Discharge Information Instructions: Constipation, Adult, [id number] Referrals: Brody Lu MD [Primary Care Provider] - Forms: ED Department Discharge Additional Instructions: The following information is given to patients seen in the emergency department who are being discharged to home. This information is to outline your options for follow-up care. We provide all patients seen in our emergency department with a follow-up referral. The need for follow-up, as well as the timing and circumstances, are variable depending upon the specifics of your emergency department visit. If you don't have a primary care physician on staff, we will provide you with a referral. We always advise you to contact your personal physician following an emergency department visit to inform them of the circumstance of the visit and for follow-up with them and/or the need for any referrals to a consulting specialist. The emergency department will also refer you to a specialist when appropriate. This referral assures that you have the opportunity for follow-up care with a specialist. All of these measure are taken in an effort to provide you with optimal care, which includes your follow-up. Under all circumstances we always encourage you to contact your private physician who remains a resource for coordinating your care. When calling for follow-up care, please make the office aware that this follow-up is from your recent emergency room visit. If for any reason you are refused follow-up, please contact the [facility] at and asked to speak to the emergency department charge nurse. [facility] [address] [place] [address] [facility] [address] [place] [id number] Take 1/2 bottle of magnesium citrate when you get home You may take second half of bottle tomorrow morning if you do not have a bowel movement by then Follow up with primary care provider Return to ED as needed as discussed Sepsis Event Note - Evaluation Sepsis Screening Result: No Definite Risk - Focused Exam Vital Signs: Vital Signs Temp Pulse Resp BP Pulse Ox 06/24/19 11:44 97.1 F 79 18 150/53 H 97 Date Exam was Performed: 06/24/19 Time Exam was Performed: 19:54 - My Orders Last 24 Hours: My Active Orders 06/24/19 11:59 Saline Lock Insert [OM.PC] Stat - Assessment/Plan Last 24 Hours: My Active Orders 06/24/19 11:59 Saline Lock Insert [OM.PC] Stat
--- NOTE | 2019-06-24 12:37 | CR ---
Abdomen: Supine view the abdomen was obtained. Comparison: Prior CT abdomen and pelvis exam of 06/16/19. Increased stool is seen throughout the colon. Bowel gas pattern is otherwise unremarkable. Scoliosis and degenerative change is noted within the spine. Vascular calcification is noted. No additional abnormality is definitely appreciated. Impression: 1. Increased stool within the colon. 2. Other findings believed to be chronic as noted above. Diagnostic code #2 This report was dictated in MDT
[2019-06-24 12:52] LABS: CARBON DIOXIDE,CO2 25.6 mmol/L (21.0-32.0)
== END 2019-06-24 13:13 | disposition home or self-care (01) ==
LOC: MW.ED 11:35
DX: K59.00 Constipation, unspecified (principal); I10 Essential (primary) hypertension; F17.210 Nicotine dependence, cigarettes, uncomplicated; Z79.899 Other long term (current) drug therapy
CPT/HCPCS: 36415; 74018; 74018-26; 80053; 81003; 83690; 85025; 99283; 99284

== ENCOUNTER 2019-06-29 09:07 | Emergency (ER) | payer MEDICARE, MEDICAID ==
--- NOTE | 2019-06-29 09:41 | EDM.PDOC ---
ED HPI GENERAL MEDICAL PROBLEM - General Chief Complaint: General Stated Complaint: ABDOMINAL PAIN Time Seen by Provider: 06/29/19 09:37 Source of Information: Reports: Patient History Limitations: Reports: No Limitations - History of Present Illness INITIAL COMMENTS - FREE TEXT/NARRATIVE: 84-year-old female presents the emergency room with a chief complaint of abdominal pain going on for a week. Patient states she has had 5 bowel movements today. Patient denies chills and fever. Patient is here for check on her abdomen Onset: Today Duration: Day(s):, Intermittent Location: Reports: Abdomen Quality: Reports: Ache Severity: Moderate Improves with: Reports: None Worsens with: Reports: None Context: Reports: Activity Associated Symptoms: Reports: No Other Symptoms, Weakness - Related Data Allergies Allergy/AdvReac Type Severity Reaction Status Date / Time No Known Allergies Allergy Verified 06/29/19 09:22 Home Meds: Home Meds Furosemide 20 mg PO ASDIRECTED PRN 09/15/18 [History] Losartan Potassium 100 mg PO ASDIRECTED 09/15/18 [History] Rosuvastatin [Crestor] 10 mg ASDIRECTED 09/15/18 [History] amLODIPine Besylate [Amlodipine Besylate] 10 mg PO ASDIRECTED 09/15/18 [History] hydroCHLOROthiazide [Hydrochlorothiazide] 25 mg PO ASDIRECTED 09/15/18 [History] Past Medical History - Past Health History Medical/Surgical History: Denies Medical/Surgical History HEENT History: Reports: None Cardiovascular History: Reports: Hypertension Respiratory History: Reports: None Gastrointestinal History: Reports: None Genitourinary History: Reports: None [employer] History: Reports: None Musculoskeletal History: Reports: None Neurological History: Reports: None Psychiatric History: Reports: None Endocrine/Metabolic History: Reports: None Hematologic History: Reports: None Immunologic History: Reports: None Oncologic (Cancer) History: Reports: None Dermatologic History: Reports: None - Infectious Disease History Infectious Disease History: Reports: None - Past Surgical History Head Surgeries/Procedures: Reports: None HEENT Surgical History: Reports: None Cardiovascular Surgical History: Reports: None Respiratory Surgical History: Reports: None GI Surgical History: Reports: None Female Surgical History: Reports: None Endocrine Surgical History: Reports: None Neurological Surgical History: Reports: None Musculoskeletal Surgical History: Reports: None Oncologic Surgical History: Reports: None Dermatological Surgical History: Reports: None Social & Family History - Family History Family Medical History: Noncontributory - Tobacco Use Smoking Status *Q: Unknown Ever Smoked - Caffeine Use Caffeine Use: Reports: None - Recreational Drug Use Recreational Drug Use: No ED ROS GENERAL - Review of Systems Review Of Systems: See Below Constitutional: Reports: No Symptoms HEENT: Reports: No Symptoms Respiratory: Reports: No Symptoms Cardiovascular: Reports: No Symptoms Endocrine: Reports: No Symptoms GI/Abdominal: Reports: Abdominal Pain : Reports: No Symptoms Musculoskeletal: Reports: No Symptoms Skin: Reports: No Symptoms Neurological: Reports: No Symptoms Psychiatric: Reports: No Symptoms Hematologic/Lymphatic: Reports: No Symptoms Immunologic: Reports: No Symptoms ED EXAM, GENERAL - Physical Exam Exam: See Below Exam Limited By: No Limitations General Appearance: Alert, WD/WN, No Apparent Distress Eye Exam: Bilateral Eye: Normal Fundi, Normal Inspection Ears: Normal External Exam, Normal Canal, Normal TMs Ear Exam: Bilateral Ear: Auricle Normal, Canal Normal Nose: Normal Inspection Throat/Mouth: Normal Inspection, Normal Lips, Normal Oropharynx Head: Atraumatic, Normocephalic Neck: Normal Inspection, Supple, Non-Tender Respiratory/Chest: No Respiratory Distress, Lungs Clear, No Accessory Muscle Use , Chest Non-Tender Cardiovascular: Normal Peripheral Pulses, Regular Rate, Rhythm, No JVD, No Murmur, No Rub GI/Abdominal: Normal Bowel Sounds, Soft, Non-Tender, No Distention, No Abnormal Bruit, No Mass, Pelvis Stable. No: Guarding, Rigid, Rebound, Tender, Abnormal Bowel Sounds (Female) Exam: Deferred Rectal (Female) Exam: Deferred Back Exam: Normal Inspection, Full Range of Motion Extremities: Normal Inspection, Normal Range of Motion Neurological: Alert, Oriented, CN II-XII Intact, Normal Cognition, Normal Reflexes, No Motor/Sensory Deficits Psychiatric: Normal Affect, Normal Mood Skin Exam: Warm, Intact, Normal Color, No Rash Lymphatic: No Adenopathy Course - Vital Signs Text/Narrative:: This is a 84-year-old female who presents to the emergency room multiple times in the last month approximately 5 times. Patient now has chronic abdominal pain with chronic constipation. Patient unable to take medications in the past patient has normal electrolytes and exam is pretty much normal. Last Recorded V/S: Last Vital Signs Temp 98.0 F 05/15/20 09:22 Pulse 61 06/29/19 09:50 Resp 18 06/29/19 09:50 BP 117/57 L 06/29/19 09:50 Pulse Ox 98 06/29/19 09:50 - Orders/Labs/Meds Orders: Active Orders 24 hr Category Date Time Status EKG Documentation Completion [RC] STAT Care 06/29/19 09:35 Active Consult to Home Care [Consult to Home Health] [CONS] Cons 06/29/19 11:06 Active Routine Labs: Laboratory Tests 06/29/19 06/29/19 06/29/19 Range/Units 10:00 10:00 10:29 WBC 7.26 (4.0-11.0) K/uL RBC 4.65 (4.30-5.90) M/uL Hgb 13.4 (12.0-16.0) g/dL Hct 42.7 (36.0-46.0) % MCV 91.8 (80.0-98.0) fL MCH 28.8 (27.0-32.0) pg MCHC 31.4 (31.0-37.0) g/dL RDW Std Deviation 45.2 (28.0-62.0) fl RDW Coeff of [place] 13 (11.0-15.0) % Plt Count 332 (150-400) K/uL MPV 9.80 (7.40-12.00) fL Neut % (Auto) 72.3 (48.0-80.0) % Lymph % (Auto) 20.4 (16.0-40.0) % [place] % (Auto) 6.3 (0.0-15.0) % Eos % (Auto) 0.7 (0.0-7.0) % Baso % (Auto) 0.3 (0.0-1.5) % Neut # (Auto) 5.3 (1.4-5.7) K/uL Lymph # (Auto) 1.5 (0.6-2.4) K/uL [place] # (Auto) 0.5 (0.0-0.8) K/uL Eos # (Auto) 0.1 (0.0-0.7) K/uL Baso # (Auto) 0.0 (0.0-0.1) K/uL Nucleated RBC % 0.0 /100WBC Nucleated RBCs # 0 K/uL Sodium 139 (136-145) mmol/L Potassium 3.6 (3.5-5.1) mmol/L Chloride 101 (98-107) mmol/L Carbon Dioxide 29.0 (21.0-32.0) mmol/L BUN 29 H (7.0-18.0) mg/dL Creatinine 1.1 H (0.6-1.0) mg/dL Est Cr Clr Drug Dosing 24.97 mL/min Estimated GFR (MDRD) 47.4 ml/min Glucose 136 H (74-106) mg/dL Calcium 9.9 (8.5-10.1) mg/dL Total Bilirubin 0.3 (0.2-1.0) mg/dL AST 32 (15-37) IU/L ALT 11 L (14-63) IU/L Alkaline Phosphatase 101 (46-116) U/L Total Protein 6.9 (6.4-8.2) g/dL Albumin 3.5 (3.4-5.0) g/dL Globulin 3.4 (2.6-4.0) g/dL Albumin/Globulin Ratio 1.0 (0.9-1.6) Lipase 138 (73-393) U/L Urine Color YELLOW Urine Appearance CLEAR Urine pH 8.0 (5.0-8.0) Ur Specific [place] 1.015 (1.001-1.035) Urine Protein NEGATIVE (NEGATIVE) mg/dL Urine Glucose (UA) NEGATIVE (NEGATIVE) mg/dL Urine Ketones NEGATIVE (NEGATIVE) mg/dL Urine Occult Blood NEGATIVE (NEGATIVE) Urine Nitrite NEGATIVE (NEGATIVE) Urine Bilirubin NEGATIVE (NEGATIVE) Urine Urobilinogen 0.2 (<2.0) EU/dL Ur Leukocyte Esterase NEGATIVE (NEGATIVE) Meds: Medications Discontinued Medications Generic Name Dose Route Start Last Admin Trade Name Freq PRN Reason Stop Dose Admin Polyethylene Glycol 17 gm 06/29/19 10:49 Miralax PO 06/29/19 10:50 ONETIME ONE Departure - Departure Time of Disposition: 11:19 Disposition: Home, Self-Care 01 Condition: Good Clinical Impression: Chronic constipation - Discharge Information Referrals: PCP,None [Primary Care Provider] - Forms: ED Department Discharge Sepsis Event Note - Evaluation Sepsis Screening Result: No Definite Risk - Focused Exam Vital Signs: Vital Signs Temp Pulse Resp BP Pulse Ox 06/29/19 09:50 61 18 117/57 L 98 06/29/19 09:22 98.0 F 81 18 83/45 L 96 Date Exam was Performed: 06/29/19 Time Exam was Performed: 11:18 - My Orders Last 24 Hours: My Active Orders 06/29/19 09:35 EKG Documentation Completion [RC] STAT - Assessment/Plan Last 24 Hours: My Active Orders 06/29/19 09:35 EKG Documentation Completion [RC] STAT
[2019-06-29 09:50] VITALS: BP 117/57; PULSE 61
[2019-06-29 10:26] LABS: POTASSIUM,K 3.6 mmol/L (3.5-5.1)
--- NOTE | 2019-06-29 10:40 | CR ---
Abdomen: Supine view of the abdomen was obtained. Comparison: Prior abdominal x-ray of 06/24/19. Mild increased stool within the colon is noted. Bowel gas pattern is otherwise unremarkable. Mild scoliosis and mild degenerative change is noted within the spine. No discrete soft tissue abnormality is appreciated. Atherosclerotic calcification is noted within the aortoiliac vessels. Impression: 1. Mild increased stool within the colon. 2. Other findings believed to be incidental as noted above. Diagnostic code #2 This report was dictated in MDT
[2019-06-29] MEDS ORDERED: Polyethylene Glycol 3350 Powder 17 GM Packet PO ONE (10:49)
== END 2019-06-29 12:21 | disposition home or self-care (01) ==
LOC: MW.ED 09:07
DX: K59.09 Other constipation (principal); I10 Essential (primary) hypertension; Z79.899 Other long term (current) drug therapy
CPT/HCPCS: 36415; 74018; 80053; 81003; 83690; 85025; 93005; 99284; A9270; 99282

== ENCOUNTER 2022-10-27 11:36 | Emergency (ER) | payer MEDICARE, MEDICAID ==
[2022-10-27] MEDS ORDERED: Morphine 4 MG/ML Syringe IVPUSH ONE (11:55)
[2022-10-27] MEDS ORDERED: Naloxone 0.4 MG/ML SDV IVPUSH PRN (11:55)
[2022-10-27] MEDS ORDERED: Ondansetron 4 MG/2 ML SDV IVPUSH ONE (11:55)
[2022-10-27] MEDS ORDERED: Sodium Chloride 0.9% 10 ML Syringe FLUSH PRN (11:55)
[2022-10-27] MEDS ORDERED: Sodium Chloride 0.9% 2.5 ML Syringe FLUSH PRN (11:55)
[2022-10-27 12:10] LABS: BASOPHILS PERCENT AUTO 0.4 % (0.0-1.5); EOSINOPHILS PERCENT AUTO 0.5 % (0.0-7.0); HEMATOCRIT 40.7 % (36.0-46.0); HEMOGLOBIN 12.5 g/dL (12.0-16.0); LYMPHOCYTES ABSOLUTE AUTO 2.2 K/uL (0.6-2.4); LYMPHOCYTES PERCENT AUTO 26.3 % (16.0-40.0); MEAN CORPUSCULAR HEMOGLOBIN 25.9 pg (27.0-32.0); MEAN CORPUSCULAR HGB CONC 30.7 g/dL (31.0-37.0); MEAN CORPUSCULAR VOLUME 84.3 fL (80.0-98.0); MONOCYTES ABSOLUTE AUTO 0.5 K/uL (0.0-0.8); MONOCYTES PERCENT AUTO 5.5 % (0.0-15.0); NEUTROPHILS ABSOLUTE AUTO 5.7 K/uL (1.4-5.7); NEUTROPHILS PERCENT AUTO 67.3 % (48.0-80.0); NRBC ABSOLUTE 0 K/uL; PLATELET COUNT,PLT 299 K/uL (150-400); RED BLOOD CELL COUNT 4.83 M/uL (4.30-5.90); WHITE BLOOD CELL COUNT,WBC 8.49 K/uL (4.0-11.0)
[2022-10-27 12:35] LABS: A/G RATIO 0.7 (0.9-1.6); ALBUMIN 3.2 g/dL (3.4-5.0); BILIRUBIN TOTAL 0.8 mg/dL (0.2-1.0); CALCIUM 10.4 mg/dL (8.5-10.1); CARBON DIOXIDE,CO2 18.9 mmol/L (21.0-32.0); CREATININE 1.3 mg/dL (0.6-1.0); EST CRCL DRUG DOSING (CG) 20.02 mL/min; MAGNESIUM 1.4 mg/dL (1.8-2.4); POTASSIUM,K 4.2 mmol/L (3.5-5.1); PROTEIN TOTAL,TP 7.9 g/dL (6.4-8.2)
[2022-10-27 13:01] LABS: LACTIC ACID 2.6 mmol/L (0.4-2.0)
[2022-10-27] MEDS ORDERED: Cefepime 2 GM Vial IVPUSH ONE (13:36)
[2022-10-27] MEDS ORDERED: Sodium Chloride 0.9% 1,000 ML IV ONE (14:21)
[2022-10-27] MEDS ORDERED: Sodium Chloride 0.9% 0 ML ONE (14:29)
[2022-10-27] MEDS ORDERED: Iopamidol 755 MG/ML 500 ML Multipack Bottle IVPUSH STA (14:32)
[2022-10-27 17:13] VITALS: BP 95/44; PULSE 70
== END 2022-10-27 17:13 | disposition home or self-care (01) ==
LOC: MW.ED 11:36
DX: C23 Malignant neoplasm of gallbladder (principal); I10 Essential (primary) hypertension; Z79.899 Other long term (current) drug therapy
CPT/HCPCS: 36415; 74174; 80053; 83605; 83690; 83735; 84484; 85025; 87040; 93005; 96361; 96374; 96375; 99285; J0692; J2270; J2405; J3490; J7030; Q9967; 93010; 99284

== ENCOUNTER 2022-12-15 14:28 | Emergency (ER) | payer MEDICARE, MEDICAID ==
[2022-12-15] MEDS ORDERED: Sodium Chloride 0.9% 500 ML IV ONE (14:52)
[2022-12-15] MEDS ORDERED: Naloxone 0.4 MG/ML SDV IVPUSH PRN (14:52)
[2022-12-15] MEDS ORDERED: Sodium Chloride 0.9% 2.5 ML Syringe FLUSH PRN (14:52)
[2022-12-15] MEDS ORDERED: Morphine 4 MG/ML Syringe IVPUSH ONE (14:52)
[2022-12-15] MEDS ORDERED: Famotidine 20 MG/2 ML SDV IVPUSH ONE (14:52)
[2022-12-15] MEDS ORDERED: Sodium Chloride 0.9% 10 ML Syringe FLUSH PRN (14:52)
[2022-12-15] MEDS ORDERED: Ondansetron 4 MG/2 ML SDV IVPUSH ONE (14:52)
[2022-12-15 15:07] LABS: BASOPHILS ABSOLUTE AUTO 0.04 K/uL (0.00-0.20); BASOPHILS PERCENT AUTO 0.4 % (0.0-1.0); EOSINOPHILS ABSOLUTE AUTO 0.09 K/uL (0.00-0.45); HEMATOCRIT 40.5 % (37.0-47.0); HEMOGLOBIN 12.6 g/dL (12.0-16.0); IMMATURE GRAN ABSOLUTE AUTO 0.03 K/uL (0.00-0.05); IMMATURE GRAN PERCENT AUTO 0.3 % (0.0-0.4); LYMPHOCYTES PERCENT AUTO 12.7 % (24.0-44.0); MEAN CORPUSCULAR HEMOGLOBIN 25.8 pg (28.0-32.0); MEAN CORPUSCULAR HGB CONC 31.1 g/dL (32.0-36.0); MEAN CORPUSCULAR VOLUME 82.8 fL (83.0-99.0); MEAN PLATELET VOLUME 10.2 fL (9.4-12.3); MONOCYTES PERCENT AUTO 7.4 % (0.0-8.0); NEUTROPHILS ABSOLUTE AUTO 7.36 K/uL (1.80-7.70); NEUTROPHILS PERCENT AUTO 78.2 % (41.0-71.0); PLATELET COUNT,PLT 173 K/uL (150-400); RED BLOOD CELL COUNT 4.89 M/uL (4.10-5.30); WHITE BLOOD CELL COUNT,WBC 9.42 K/uL (3.9-11.3)
[2022-12-15] MEDS ORDERED: fentaNYL 50 MCG/ML SDV IVPUSH ONE (15:07)
[2022-12-15 15:51] LABS: A/G RATIO 0.5 (0.9-1.6); ALBUMIN 2.6 g/dL (3.4-5.0); BILIRUBIN TOTAL 1.2 mg/dL (0.2-1.0); CALCIUM 10.1 mg/dL (8.5-10.1); CARBON DIOXIDE,CO2 19.2 mmol/L (21.0-32.0); CREATININE 2.4 mg/dL (0.6-1.0); EST CRCL DRUG DOSING (CG) 10.89 mL/min; MAGNESIUM 2.2 mg/dL (1.8-2.4); POTASSIUM,K 5.6 mmol/L (3.5-5.1); PROTEIN TOTAL,TP 7.4 g/dL (6.4-8.2)
[2022-12-15] MEDS ORDERED: Sodium Chloride 0.9% 1,000 ML IV ONE (15:54)
[2022-12-15] MEDS ORDERED: Sodium Chloride 0.9% 500 ML IV SCH (16:00)
[2022-12-15 18:43] VITALS: BP 95/45; PULSE 64
== END 2022-12-15 18:41 | disposition home or self-care (01) ==
LOC: MW.ED 14:28
DX: C23 Malignant neoplasm of gallbladder (principal); N17.9 Acute kidney failure, unspecified; R54 Age-related physical debility; I10 Essential (primary) hypertension; Z79.899 Other long term (current) drug therapy
CPT/HCPCS: 36415; 74176; 80053; 83690; 83735; 84484; 85025; 96361; 96374; 96375; 99285; J2405; J3010; J3490; J7030; J7040; 93010; 99284

== ENCOUNTER 2022-12-24 16:46 | Inpatient (IN) | payer MEDICARE, MEDICAID ==
[2022-12-24] MEDS ORDERED: Polyethylene Glycol 3350 Powder 17 GM Packet PO PRN (17:58)
[2022-12-24] MEDS ORDERED: Prochlorperazine 10 MG/2 ML SDV IVPUSH PRN (17:58)
[2022-12-24] MEDS ORDERED: Acetaminophen 325 MG Tab PO PRN (17:58)
[2022-12-24] MEDS ORDERED: Morphine 2 MG/ML SYRINGE IVPUSH PRN (17:58)
[2022-12-24] MEDS ORDERED: Glycopyrrolate 0.2 MG/ML SDV IVPUSH PRN (17:58)
[2022-12-24] MEDS ORDERED: LORazepam 2 MG/ML SDV IVPUSH PRN (17:58)
[2022-12-24] MEDS ORDERED: Ketorolac 30 MG/ML SDV IVPUSH PRN (17:58)
[2022-12-24] MEDS ORDERED: Haloperidol 1 MG Tab PO PRN (18:16)
[2022-12-24] MEDS ORDERED: Morphine 10 MG/0.5 ML Oral Syringe PO PRN ×2 (18:24→20:15)
[2022-12-24] MEDS ORDERED: Ondansetron 4 MG Tab.DIS PO PRN (18:26)
[2022-12-24] MEDS ORDERED: Acetaminophen 650 MG Supp RECTAL PRN (18:26)
[2022-12-24] MEDS ORDERED: LORazepam 1 MG Tab PO PRN (18:26)
[2022-12-24] MEDS ORDERED: Bisacodyl 10 MG Supp RECTAL PRN (18:26)
[2022-12-24] MEDS ORDERED: Morphine 10 MG/0.5 ML Oral Syringe PO SCH (18:30)
[2022-12-24 19:57] VITALS: BP 70/37; PULSE 66
[2022-12-24] MEDS: Morphine 10 MG/0.5 ML Oral Syringe PO SCH (19:57)
[2022-12-25] MEDS: Morphine 10 MG/0.5 ML Oral Syringe PO SCH (00:19)
== END 2022-12-25 04:10 | disposition expired | DRG 951 ==
LOC: MW.MS 16:46
PROVIDERS: ADMIT Internal Medicine; ATTEND Internal Medicine
DX: Z75.5 Holiday relief care (principal); C23 Malignant neoplasm of gallbladder; Z66 Do not resuscitate; Z51.5 Encounter for palliative care
CPT/HCPCS: J3490